=== PATIENT | female | born 1985 | race Caucasian/White ===

== ENCOUNTER 2020-11-29 23:20 | Emergency (ER) | payer SELFPAY ==
[~2020-11-29] VITALS: Ht 167.6 cm; Wt 70.3 kg
[2020-11-29 23:23] VITALS: BP 151/72
[2020-11-29] MEDS ORDERED: CIPROFLOXACIN HCL 500 MG TABLET ONE (23:57)
[2020-11-29] MEDS ORDERED: CIPR500T5 PO (23:59)
[2020-11-30] MEDS ORDERED: CIPROFLOXACIN HCL 500 MG TABLET PO ONE
== END 2020-11-30 | disposition home or self-care (01) ==
LOC: ER 23:20
DX: Z20.811 Contact with and (suspected) exposure to meningococcus (principal)